=== PATIENT | male | born 1980 | race Caucasian/White ===

== ENCOUNTER 2019-06-29 18:09 | Emergency (ER) | payer MEDICAID ==
[~2019-06-29] VITALS: Ht 177.8 cm; Wt 90.9 kg
[2019-06-29] MEDS ORDERED: IBUPROFEN 400 MG TABLET PO ONE (18:30)
[2019-06-29] MEDS ORDERED: ACYCLOVIR 200 MG CAPSULE PO ONE (18:30)
[2019-06-29 19:39] VITALS: BP 131/72
== END 2019-06-29 19:50 | disposition home or self-care (01) ==
LOC: EMS 18:10
DX: B02.9 Zoster without complications (principal)